=== PATIENT | female | born 2000 | race Caucasian/White ===

== ENCOUNTER 2024-11-04 00:16 | Emergency (ER) | payer BC ==
[~2024-11-04] VITALS: Ht 162.6 cm; Wt 76.0 kg
--- NOTE | 2024-11-04 03:41 | Physician Documentation ---
History of Present Illness ~ Chief Complaint: Shortness of Breath Stated Complaint: VOMITING,ALLERGIES Time Seen by MD: 03:39 OK to notify your PCP?: Yes Source: patient, RN/MD, RN notes reviewed, old records Mode of Arrival: POV Exam Limitations: no limitations HPI 24 year old female presents to the emergency department for complaints of shortness of breath that began at 2130 tonight. She states that she has been short of breath and states that she cannot catch her breath. She states that when she lays back she cannot catch her breath. She states she smokes regul tuan. She denies control or any anxiety. She states that she sees her primary in [facility]. Past Medical History Past Medical History: No Pertinent History Past Surgical History: no surgical history Last Menstrual Period: Oct 05, 2024 Smoking Status: Current every day smoker Alcohol Use: None Drug Use: none Review of Systems All Other Systems at this time: Reviewed and Negative ROS As stated above in the HPI, otherwise all systems are reviewed and negative. Physical Exam Vital Signs: RN Vital Signs have been reviewed: Yes, Temperature: 97.8, Source: Temporal, Heart Rate: 80, Respiratory Rate: 16, BP: 128/73, Pulse Oximetry: 100, Weight: 75.950 Oxygen Flow Rate: 0 Pulse Oximetry Reflects: adequate oxygenation Physical Exam General: The patient is anxious, well developed, well nourished, nontoxic appearing and is in no acute distress. Skin: [place], warm and dry with no rashes. HEENT: Head was normocephalic and atraumatic. Eyes - pupils equal, round, reactive to light and accommodation. Extraocular movements were intact. Conjunctivae were nonicteric. Ears - bilateral tympanic membranes were normal. The mouth and oropharynx were clear with moist mucous membranes. There were no pharyngeal exudates or erythema. Neck: Supple and nontender. There was no jugular venous distention, lymphadenopathy, thyromegaly or masses. Chest: Clear to auscultation bilaterally without wheezes, rales or rhonchi. No accessory muscle use. No dullness to percussion. Heart: Rapid heart rate. S1, S2. No murmurs. Palpation of the chest wall was normal. No rubs or thrills. Abdomen: Soft, nontender and nondistended. Positive bowel sounds. No guarding or rebound. No hepatosplenomegaly or palpable masses. Extremities: No cyanosis, clubbing or edema. The patient moves all extremities. Pulses were equal and symmetric. Neurologic: Cranial nerves II-XII were intact. Sensation was intact to light touch throughout. Motor strength was 5/5 in all four extremities. Deep tendon reflexes were intact in both upper and lower extremities. Psychologic: The patient was oriented to person, place and time. The patient demonstrated appropriate judgement and insight. Progress Results/Orders Results/Orders Orders - CARINA CAVAZOS MD Stat Ekg (11/04/24 ) Chest,Single View (11/04/24 04:00) T3 Total (11/04/24 04:38) Completed Orders - CARINA CAVAZOS MD Stat Ekg (11/04/24 ) Chest,Single View (11/04/24 04:00) Cbc/Diff (11/04/24 03:54) BMP (11/04/24 03:54) ESR (11/04/24 03:54) TSH (11/04/24 03:54) Liver Panel (11/04/24 03:54) C-Reactive Protein (11/04/24 03:54) Pt Inr (11/04/24 04:01) PTT (11/04/24 04:01) D-Dimer (11/04/24 04:01) Free T4 (11/04/24 00:25) Vital Signs 11/04/24 11/04/24 11/04/24 11/04/24 00:26 02:50 02:56 05:27 Temp 97.8 98.6 Pulse 96 80 78 Resp 16 16 16 18 B/P (MAP) 104/69 128/73 (91) 126/72 Pulse Ox 97 100 98 O2 Flow Rate 0 0 Laboratory Tests Test 11/04/24 00:25 11/04/24 05:09 White Blood Count 14.0 H Red Blood Count 4.63 Hemoglobin 13.8 Hematocrit 40.9 Mean Corpuscular Volume 88.3 Mean Corpuscular Hemoglobin 29.7 Mean Corpuscular Hemoglobin Concent 33.6 Red Cell Distribution Width 13.0 Platelet Count 237 Mean Platelet Volume 8.8 Neutrophils (%) (Auto) 77.6 H Lymphocytes (%) (Auto) 15.0 L Monocytes (%) (Auto) 5.5 Eosinophils (%) (Auto) 1.2 Basophils (%) (Auto) 0.7 Neutrophils # (Auto) 10.9 H Lymphocytes # (Auto) 2.1 Monocytes # (Auto) 0.8 Eosinophils # (Auto) 0.2 Basophils # (Auto) 0.1 CBC Comment Erythrocyte Sedimentation Rate 5 Prothrombin Time 10.3 INR International Normalized Ratio 1.0 Activated Partial Thromboplast Time 26 D-Dimer 0.44 D-Dimer Comment Coagulation Comments Sodium Level 139 Potassium Level 4.1 Chloride Level 104 Carbon Dioxide Level 29.1 Anion Gap 6 L Blood Urea Nitrogen 10 Creatinine 0.81 Estimated GFR/1.73 m2 88 BUN/Creatinine Ratio 12.3 Glucose Level 106 H Calcium Level 9.2 Total Bilirubin 1.0 Direct Bilirubin 0.1 Aspartate Amino Transf (AST/SGOT) 21 Alanine Aminotransferase (ALT/SGPT) 18 Alkaline Phosphatase 56 C-Reactive Protein 0.05 Total Protein 7.5 Albumin 4.0 Globulin 3.5 Albumin/Globulin Ratio 1.1 Thyroid Stimulating Hormone (TSH) 7.05 H Free Thyroxine 1.11 Chemistry Comments Re-Evaluation Re-evaluation : Re-Evaluation: Improved Progress Patient was seen and examined. Patient is given reassurance. Patient had some vague complaints it seemed to be positional specifically lying flat causing some discomfort. Also the patient's stands up she becomes tachycardic. Patient denies any drugs or alcohol. Patient is having some exertional dyspnea. Laboratory work was obtained. Sed rate was negative at five CBC shows slight elevation of white count of 14.0 but otherwise no anemia. Patient however with her chemistry did find an abnormality with a TSH elevated at seven free T4 was then ordered and was normal at 1.1 free T3 is pending. D-dimer was negative which is reassuring for a negative pulmonary embolism. Patient had no risk in that she is not taking any control nor is she has smoker. Nevertheless that was considered pericarditis EKG showed normal EKG. X-ray was also within normal limits. However with the thyroid being elevated the patient was thought to me be having a thyroid issue. Nghia's thyroiditis hyper hypothyroid was considered. Elevated TSH suggest hypothyroidism at this time. Patient will follow up with her primary care physician for further workup and care. In addition to that patient may need ultrasound of her thyroid and other endocrine studies. Continuous registered nurse cardiac telemetry interpretation shows normal sinus rhythm heart rate 90s, no ectopy, normal, my interpretation. Pulse oximetry monitor interpretation shows normal oxygenation 98% room air, normal, my interpretation. EKG/XRAY/CT/US/VASC/MRI EKG : Additional Comment [id number]: ANICETO Spiveya interpreted EKG to reveal sinus rhythm at a rate of 83. Patient has a QTc of 407. Chest X-Ray : Additional Comments CHEST RADIOGRAPH Indication: CHEST PAIN Technique: 2 frontal radiographs of the chest were obtained. Comparison: None FINDINGS: Lines and Tubes: None Lungs: No focal consolidation. Pleura: No effusion. No pneumothorax. Cardiomediastinal contours: Unremarkable Bones: No acute osseous abnormality. IMPRESSION: 1. No acute cardiopulmonary disease. Electronically Signed by:GUCCI CASTELLON MD Date & Time: 11/04/24 0412 Medical Decision Making Additional info obtained from: old records Differential Dx:Considerations: Include: anxiety, asthma, bronchitis, dysrhythmia, hypertension, accelerated, myocardial infarction, panic attack, pneumothorax, pulmonary embolism, respiratory distress, respiratory failure, sinusitis, upper resp. infection, other Departure Time of Disposition: 04:01 Disposition: 01 HOME / SELF CARE / HOMELESS Impression: Primary Impression: Dyspnea Qualified Codes: R06.00 - Dyspnea, unspecified Additional Impression: Hypothyroidism Qualified Codes: E03.9 - Hypothyroidism, unspecified Condition: Stable Discharge Instructions: Shortness of Breath, Adult, [id number] Additional Instructions: Follow up with primary care provider for a thyroid and endocrine workup. This may include a thyroid tests and a thyroid stress test. Medications like beta blockers may help with your symptoms. Departure Forms: Excuse form Work or School Excused From: Work Excuse beginning now through the following date: Nov 04, 2024 Referrals: NO PRIMARY CARE PROVIDER (PCP) Education Educated: Patient Educated regarding: diagnosis, treatment, prognosis, need for follow up Signature Scribe Signature: Scribed for Carina Cavazos MD by Mague Alamo . 11/04/24 04:02 Attestation: The note accurately reflects work and decisions made by me.Carina Cavazos MD 11/04/24 03:41 CARINA CAVAZOS MD Nov 04, 2024 03:41 MAGUE CONNER Nov 04, 2024 04:03
[2024-11-04 04:11] LABS: MEAN PLATELET VOLUME 8.8 FL (7.4-10.4); RED CELL DISTRIBUTION WIDTH 13.0 % (11.5-14.5)
--- NOTE | 2024-11-04 04:15 | RADIOLOGY REPORT ---
CHEST RADIOGRAPH Indication: CHEST PAIN Technique: 2 frontal radiographs of the chest were obtained. Comparison: None FINDINGS: Lines and Tubes: None Lungs: No focal consolidation. Pleura: No effusion. No pneumothorax. Cardiomediastinal contours: Unremarkable Bones: No acute osseous abnormality. IMPRESSION: 1. No acute cardiopulmonary disease.
[2024-11-04 04:16] LABS: APTT 26 SECONDS (22-32); INR 1.0 INR
[2024-11-04 04:18] LABS: CREATININE 0.81 MG/DL (0.40-0.90); TOTAL CARBON DIOXIDE 29.1 MMOL/L (24-32); eCRCL 94 ML/MIN; eGFR 88 ML/MIN
[2024-11-04 05:27] VITALS: BP 126/72; PULSE 78; RESP 18; TEMP 98.6; O2SAT 98
--- NOTE | 2024-11-04 05:54 | ELECTROCARDIOGRAPH REPORT ---
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 Carina Malhotra Measurements Intervals [place] Rate: 83 P: 63 UT: 121 QRS: 86 QRSD: 85 T: 57 QT: 346 QTc: 407 Interpretive Statements Sinus rhythm Electronically Signed On 11-04-2024 22:09:[address] Carina Malhotra Please click the below link to view image of tracing.
== END 2024-11-04 05:28 | disposition home or self-care (01) ==
LOC: ER 00:19
DX: R06.00 Dyspnea, unspecified (principal); E03.9 Hypothyroidism, unspecified; F17.200 Nicotine dependence, unspecified, uncomplicated
CPT/HCPCS: 36415; 71045; 80048; 80076; 84439; 84443; 84480; 85025; 85379; 85610; 85651; 85730; 86140; 93005; 99285